=== PATIENT | male | born 1980 | race Caucasian/White ===

== ENCOUNTER 2019-04-05 14:22 | Emergency (ER) | payer MEDICAID ==
[~2019-04-05] VITALS: Ht 180.3 cm; Wt 85.2 kg
[~2019-04-05 14:22] MED LIST: AMOX500C2 PO; BACTDS PO; CETI10CA PO; CIPR500T4 PO; HYDR-3498 PO; IBUP-1542 PO; METR500T PO
[2019-04-05 14:24] VITALS: BP 109/64; PULSE 56; RESP 20; Ht 180.3 cm; Wt 85.2 kg
[2019-04-05] MEDS ORDERED: LIDOCAINE 1% (MPF) 5 ML VIAL INJ ONE (15:30)
[2019-04-05] MEDS ORDERED: CEFTRIAXONE 250 MG INJ IM ONE (15:30)
--- NOTE | 2019-04-05 15:33 | ERD ---
ER Documentation Chief Complaint Chief Complaint abdominal pain , diarrhea, and vomitting x 5 days HPI 38-year-old male presenting with dysuria and frequency for the last 2 to 3 days. He denies any penile discharge. He had STD testing done 3 or 4 months ago which was clean and has not had any sexual partners since then. He denies any abdominal pain or back pain. No fevers. Denies other medical problems. NKDA. Surgical history denies. Social history denies ROS All systems reviewed and are negative except as per history of present illness. Medications Home Meds Active Scripts Metronidazole* (Flagyl*) 500 Mg Tablet, 500 MG PO TID for 7 Days, TAB Prov:PATO HOFF PA-C 04/05/19 Ciprofloxacin Hcl* (Ciprofloxacin Hcl*) 500 Mg Tablet, 500 MG PO BID for 7 Days, TAB Prov:PATO HOFF PA-C 04/05/19 Sulfamethoxazole-Trimethoprim* (Bactrim* DS) 800-160 Mg Tab, 1 TAB PO BID for 14 Days, TAB Prov:BIBI SPRINGER 03/14/16 Hydrocodone Bit-Acetaminophen* (Calamus*) 5-325 Mg Tab, 1 TAB PO Q6 PRN for PAIN, #7 TAB Prov:PATO HOFF PA-C 03/10/16 Ibuprofen* (Motrin*) 600 Mg Tab, 600 MG PO Q6H PRN for PAIN AND OR ELEVATED TEMP, #30 TAB Prov:SETH DIAZ NP 12/19/15 Cetirizine Hcl* (Zyrtec*) 10 Mg Capsule, 10 MG PO DAILY, #30 TAB.CHEW Prov:SETH DIAZ NP 12/19/15 Amoxicillin* (Amoxicillin*) 500 Mg Cap, 500 MG PO TID for 10 Days, CAP Prov:SETH DIAZ NP 12/19/15 Reported Medications [none] Unknown Strength No Conflict Check 12/19/15 Allergies Allergies: Coded Allergies: No Known Allergies (Verified Allergy, Mild, 03/16/16) PMhx/Soc History of Surgery: Yes (head surgery) Anesthesia Reaction: No Hx Neurological Disorder: No Hx Respiratory Disorders: No Hx Cardiac Disorders: No Hx Psychiatric Problems: No Hx Miscellaneous Medical Probl: No Hx Alcohol Use: Yes (every friday) Hx Substance Use: No Hx Tobacco Use: No Smoking Status: Never smoker FmHx Family History: No diabetes, No coronary disease, No other Physical Exam Vitals Vital Signs Date Temp Pulse Resp B/P (MAP) Pulse Ox O2 O2 Flow FiO2 Time Delivery Rate 04/05/19 98.3 56 20 109/64 98 14:24 (79) Physical Exam GENERAL: The patient is well-appearing, well-nourished, in no acute distress HEENT: Atraumatic. Conjunctivae are pink. Pupils equal, round, and reactive to light. There is no scleral icterus. Tympanic membranes clear bilaterally. Oropharynx clear. CHEST: Clear to auscultation bilaterally. There are no rales, wheezes or rhonchi. HEART: Regular rate and rhythm. No murmurs, clicks, rubs or gallops. ABDOMEN:Soft, nontender and nondistended. Good bowel sounds. No rebound or guarding. No gross peritonitis. No gross organomegaly or masses. BACK: No midline or flank tenderness. Results 24 hrs Laboratory Tests Test 04/05/19 15:07 04/05/19 15:12 Bedside Glucose 111 mg/dL Bedside Urine pH (LAB) 5.0 Bedside Urine Protein (LAB) Trace Bedside Urine Glucose (UA) Negative Bedside Urine Ketones (LAB) Trace Bedside Urine Blood Trace-intact Bedside Urine Nitrite (LAB) Negative Bedside Urine Leukocyte Esterase (L 2+ Current Medications Medications Dose Sig/Laura Start Time Status Last (Trade) Ordered Route PRN Stop Time Admin Dose Reason Admin Ceftriaxone 250 mg ONCE ONCE 04/05/19 Sodium IM 15:30 04/05/19 (Rocephin) 15:31 Lidocaine 5 ml ONCE ONCE 04/05/19 (Xylocaine INJ 15:30 04/05/19 1% (Mpf)) 15:31 Procedures/MDM ER course: Urinalysis 2+ leuks. Urine sent for STD screening. Rocephin and azithromycin given in the ED. MDM: 38-year-old male presenting with dysuria. Patient has no STDs risk factors however he will be treated for prophylaxis against STDs. I will also give medication against urinary tract infection. Patient is discharged with strict ER precautions and told to follow-up with primary care within 1 to 2 days for close evaluation. Patient is told if symptoms change or worsen to return immediately to the ER. All questions answered at discharge Departure Diagnosis: Primary Impression: UTI (lower urinary tract infection) Condition: Stable Patient Instructions: Dysuria Referrals: [facility] YOU HAVE RECEIVED A MEDICAL SCREENING EXAM AND THE RESULTS INDICATE THAT YOU DO NOT HAVE A CONDITION THAT REQUIRES URGENT TREATMENT IN THE EMERGENCY DEPARTMENT. FURTHER EVALUATION AND TREATMENT OF YOUR CONDITION CAN WAIT UNTIL YOU ARE SEEN IN YOUR DOCTORS OFFICE WITHIN THE NEXT 1-2 DAYS. IT IS YOUR RESPONSIBILITY TO MAKE AN APPOINTMENT FOR FOLOW-UP CARE. IF YOU HAVE A PRIMARY DOCTOR --you should call your primary doctor and schedule an appointment IF YOU DO NOT HAVE A PRIMARY DOCTOR YOU CAN CALL OUR PHYSICIAN REFERRAL HOTLINE AT IF YOU CAN NOT AFFORD TO SEE A PHYSICIAN YOU CAN CHOSE FROM THE FOLLOWING [facility] [address] [place] [address] [facility] [facility] [address] [facility] [address] [facility] [address] [facility] [facility] [address] Additional Instructions: FOLLOW UP WITH YOUR PRIMARY CARE PHYSICIAN TOMORROW.Return to this facility if you are not improving as expected. PATO HOFF PA-C Apr 05, 2019 15:33
== END 2019-04-05 15:52 | disposition home or self-care (01) ==
LOC: FTE 14:22
DX: N39.0 Urinary tract infection, site not specified (principal)
CPT/HCPCS: 81003; 82962; 87591; 96372; J0696; Z7502; Z7610